=== PATIENT | female | born 1960 | race Caucasian/White ===

== ENCOUNTER 2023-12-04 12:38 | Outpatient (RCR) | payer BC, MEDICARE, SELFPAY | END 2023-12-04 23:59 | disposition home or self-care (01) | LOC: RPT 12:38 | PROVIDERS: ATTENDING PHYSICIAN Urology; FAMILY PHYSICIAN Internal Medicine | DX: M54.16 Radiculopathy, lumbar region (principal); Z73.6 Limitation of activities due to disability ==

== ENCOUNTER 2024-01-18 13:51 | Outpatient (RCR) | payer BC, MEDICARE, SELFPAY | END 2024-01-18 23:59 | disposition home or self-care (01) | LOC: RPT 13:51 | PROVIDERS: ATTENDING PHYSICIAN Urology; FAMILY PHYSICIAN Internal Medicine | DX: N30.10 Interstitial cystitis (chronic) without hematuria (principal); M62.89 Other specified disorders of muscle; N32.81 Overactive bladder; N95.8 Other specified menopausal and perimenopausal disorders; Z73.6 Limitation of activities due to disability; R10.2 Pelvic and perineal pain | CPT/HCPCS: 97163; 97530 ==

== ENCOUNTER 2024-02-09 13:09 | Outpatient (RCR) | payer BC, MEDICARE, SELFPAY | END 2024-02-09 23:59 | disposition home or self-care (01) | LOC: RPT 13:09 | PROVIDERS: ATTENDING PHYSICIAN Urology; FAMILY PHYSICIAN Internal Medicine | DX: N30.10 Interstitial cystitis (chronic) without hematuria (principal); M62.89 Other specified disorders of muscle; N32.81 Overactive bladder; N95.8 Other specified menopausal and perimenopausal disorders; Z73.6 Limitation of activities due to disability; R10.2 Pelvic and perineal pain | CPT/HCPCS: 97140; 97530 ==

== ENCOUNTER → 2024-10-29 11:31 | Outpatient (REF) | payer BC, MEDICARE, SELFPAY | LOC: HWRAD 11:31 | PROVIDERS: ATTENDING PHYSICIAN Urology; FAMILY PHYSICIAN Internal Medicine | DX: N20.0 Calculus of kidney (principal); R31.29 Other microscopic hematuria | CPT/HCPCS: 76770 ==